=== PATIENT | female | born 1965 | race Two or more races ===

== ENCOUNTER 2017-08-17 08:49 | Outpatient (CLI) | payer OTHER | END 2017-08-17 09:04 | disposition home or self-care (01) | LOC: LAB 08:49 | DX: D50.9 Iron deficiency anemia, unspecified (principal); C18.0 Malignant neoplasm of cecum; E03.9 Hypothyroidism, unspecified; E78.2 Mixed hyperlipidemia; E56.8 Deficiency of other vitamins; E55.9 Vitamin D deficiency, unspecified; E11.9 Type 2 diabetes mellitus without complications; I11.9 Hypertensive heart disease without heart failure; R19.5 Other fecal abnormalities; R80.9 Proteinuria, unspecified; N19 Unspecified kidney failure; N39.0 Urinary tract infection, site not specified; K92.1 Melena; Z12.11 Encounter for screening for malignant neoplasm of colon ==

== ENCOUNTER 2017-08-17 09:06 | Outpatient (CLI) | payer OTHER | END 2017-08-17 09:17 | disposition home or self-care (01) | LOC: RAD 09:06 | DX: I11.9 Hypertensive heart disease without heart failure (principal); R06.02 Shortness of breath ==

== ENCOUNTER → 2017-08-18 14:16 | Outpatient (CLI) | payer OTHER | END | disposition home or self-care (01) | LOC: LAB 14:16 | DX: D50.9 Iron deficiency anemia, unspecified (principal); E03.9 Hypothyroidism, unspecified; E78.2 Mixed hyperlipidemia; I11.9 Hypertensive heart disease without heart failure; E56.8 Deficiency of other vitamins; N39.0 Urinary tract infection, site not specified; Z12.11 Encounter for screening for malignant neoplasm of colon; R19.5 Other fecal abnormalities; E55.9 Vitamin D deficiency, unspecified; N19 Unspecified kidney failure; E11.9 Type 2 diabetes mellitus without complications; R80.9 Proteinuria, unspecified; C18.0 Malignant neoplasm of cecum; K92.1 Melena ==

== ENCOUNTER → 2017-09-13 | Outpatient (CLI) | payer OTHER | END | disposition home or self-care (01) | LOC: RAD 12:23 | DX: M54.5 Low back pain (principal); M53.3 Sacrococcygeal disorders, not elsewhere classified ==

== ENCOUNTER 2017-10-18 11:06 | Outpatient (CLI) | payer OTHER | END 2017-10-18 11:13 | disposition home or self-care (01) | LOC: MAMO-SONO 11:06 | DX: Z12.31 Encounter for screening mammogram for malignant neoplasm of breast (principal); N60.11 Diffuse cystic mastopathy of right breast; N60.12 Diffuse cystic mastopathy of left breast ==

== ENCOUNTER 2018-11-09 11:23 | Outpatient (CLI) | payer OTHER | END 2018-11-09 11:29 | disposition home or self-care (01) | LOC: LAB 11:23 | DX: E03.8 Other specified hypothyroidism (principal); D50.8 Other iron deficiency anemias; E78.2 Mixed hyperlipidemia; I11.9 Hypertensive heart disease without heart failure; E56.8 Deficiency of other vitamins; N39.0 Urinary tract infection, site not specified; Z12.11 Encounter for screening for malignant neoplasm of colon; E55.9 Vitamin D deficiency, unspecified; N19 Unspecified kidney failure; E11.9 Type 2 diabetes mellitus without complications; R80.8 Other proteinuria; C18.0 Malignant neoplasm of cecum; K92.1 Melena; M76.62 Achilles tendinitis, left leg ==

== ENCOUNTER 2018-11-14 08:54 | Outpatient (CLI) | payer OTHER | END 2018-11-14 15:00 | disposition home or self-care (01) | LOC: LAB 08:54 | DX: E03.8 Other specified hypothyroidism (principal); D50.8 Other iron deficiency anemias; E78.2 Mixed hyperlipidemia; I11.9 Hypertensive heart disease without heart failure; E56.8 Deficiency of other vitamins; N39.0 Urinary tract infection, site not specified; Z12.11 Encounter for screening for malignant neoplasm of colon; E55.9 Vitamin D deficiency, unspecified; N19 Unspecified kidney failure; E11.9 Type 2 diabetes mellitus without complications; R80.8 Other proteinuria; C18.0 Malignant neoplasm of cecum; K92.1 Melena ==

== ENCOUNTER 2019-12-11 07:39 | Outpatient (CLI) | payer OTHER | END 2019-12-11 07:53 | disposition home or self-care (01) | LOC: MAMO-SONO 07:39 | PROVIDERS: ATTEND Obstetrics & Gynecology | DX: Z12.31 Encounter for screening mammogram for malignant neoplasm of breast (principal); N60.11 Diffuse cystic mastopathy of right breast; N60.12 Diffuse cystic mastopathy of left breast; N95.8 Other specified menopausal and perimenopausal disorders ==

== ENCOUNTER 2020-06-12 15:42 | Outpatient (CLI) | payer OTHER | END 2020-06-12 15:55 | disposition home or self-care (01) | LOC: LAB 15:42 | PROVIDERS: ATTEND Internal Medicine Geriatric Medicine | DX: D64.89 Other specified anemias (principal); E83.89 Other disorders of mineral metabolism ==

== ENCOUNTER 2021-06-24 09:02 | Outpatient (CLI) | payer OTHER | END 2021-06-24 09:12 | disposition home or self-care (01) | LOC: SONOGRAMA 09:02 | PROVIDERS: ATTEND Obstetrics & Gynecology | DX: N88.8 Other specified noninflammatory disorders of cervix uteri (principal); N60.02 Solitary cyst of left breast; R92.2 Inconclusive mammogram; R10.2 Pelvic and perineal pain ==

== ENCOUNTER 2023-07-20 09:51 | Outpatient (CLI) | payer OTHER | END 2023-07-20 09:58 | disposition home or self-care (01) | LOC: RAD 09:51 | PROVIDERS: ATTEND Orthopaedic Surgery | DX: M25.561 Pain in right knee (principal); M25.562 Pain in left knee ==